=== PATIENT | male | born 1970 | race Caucasian/White ===

== ENCOUNTER 2025-02-08 00:44 | Inpatient (IN) | payer MEDICAID, OTHER ==
[~2025-02-08] VITALS: Ht 188 cm; Wt 81.6 kg
[2025-02-08] MEDS ORDERED: VANCOMYCIN IV 200 ML ONE (02:03)
[2025-02-08] MEDS: VANCOMYCIN IV 1,000 MG in IV DEXTROSE 5% 250 ML IV ONE (02:05)
[2025-02-08 02:16] LABS: PLATELET COUNT (AUTO) 247 K/uL (152-348); RED BLOOD CELL COUNT(AUTO) 4.27 MIL/uL (4.06-5.63); RED CELL DISTRIBUTION WIDTH 14.4 % (12.1-16.2); WHITE BLOOD COUNT (AUTO) 7.5 K/uL (3.6-10.2)
[2025-02-08 02:22] LABS: CREATININE 1.0 mg/dL (0.6-1.3); SODIUM SERUM 136.0 mmol/L (136-145); UREA NITROGEN, BLOOD 15.0 mg/dL (7-18)
[2025-02-08 02:28] LABS: ASPARTATE AMINOTRANSFERASE 11.0 U/L (15-37); TOTAL PROTEIN, SERUM 9.2 g/dL (6.4-8.2)
[2025-02-08 05:00] VITALS: BP 115/74
[2025-02-08] MEDS ORDERED: MAGNESIUM HYDROXIDE 30 ML LIQUID UDC PO PRN (05:00)
[2025-02-08] MEDS ORDERED: ONDANSETRON 4 MG/2 ML VIAL IV PRN (05:00)
[2025-02-08] MEDS ORDERED: ACETAMINOPHEN 325 MG TABLET PO PRN (05:00)
[2025-02-08] MEDS ORDERED: ENOXAPARIN SODIUM 40 MG/0.4 ML DISP.SYRIN SQ SCH (05:00)
[2025-02-08] MEDS ORDERED: ENOXAPARIN SODIUM 40 MG/0.4 ML DISP.SYRIN SQ ONE (05:45)
[2025-02-08 06:49] VITALS: BP 121/76; TEMP 97.9; O2SAT 99
[2025-02-08] MEDS: PANTOPRAZOLE SODIUM 40 MG TABLET.DR PO SCH (08:08)
[2025-02-08] MEDS: IV NS 1000 ML 1,000 ML IV PRN (08:11)
[2025-02-08] MEDS: VANCOMYCIN IV 1,000 MG in IV DEXTROSE 5% 250 ML IV SCH (09:15)
[2025-02-08 11:34] VITALS: BP 109/61; TEMP 97.8; O2SAT 98
[2025-02-08 12:23] LABS: *AMPHETAMINE, URINE POSITIVE (NEGATIVE); *BARBITURATE, URINE NEGATIVE (NEGATIVE); *BENZODIAZEPINE, URINE NEGATIVE (NEGATIVE); *CANNABINOID, URINE NEGATIVE (NEGATIVE); *COCCAINE, URINE POSITIVE (NEGATIVE); *OPIATE, URINE NEGATIVE (NEGATIVE); *PHENCYCLIDINE SCREEN,URINE NEGATIVE (NEGATIVE); FENTANYL, URINE POSITIVE (NEGATIVE)
[2025-02-08] MEDS: CEFEPIME HCL 2 GM in IV DEXTROSE 5% 100 ML IV SCH (13:57)
[2025-02-08 15:54] VITALS: BP 97/53; TEMP 97.4; O2SAT 98
[2025-02-08] MEDS: SODIUM HYPOCHLORITE 0.125% (QUARTER STRENGTH) 473 ML BOTTLE TP SCH (16:25)
[2025-02-08 19:28] VITALS: BP 104/53; TEMP 98.6; O2SAT 99
[2025-02-09 05:28] VITALS: BP 109/64; TEMP 97.5; O2SAT 96
[2025-02-09 06:47] LABS: PLATELET COUNT (AUTO) 214 K/uL (152-348); RED BLOOD CELL COUNT(AUTO) 4.03 MIL/uL (4.06-5.63); RED CELL DISTRIBUTION WIDTH 14.4 % (12.1-16.2); WHITE BLOOD COUNT (AUTO) 4.7 K/uL (3.6-10.2)
[2025-02-09 07:09] LABS: CREATININE 0.9 mg/dL (0.6-1.3); SODIUM SERUM 138.0 mmol/L (136-145); UREA NITROGEN, BLOOD 11.0 mg/dL (7-18)
[2025-02-09] MEDS: ENOXAPARIN SODIUM 40 MG/0.4 ML DISP.SYRIN SQ SCH (09:10)
[2025-02-09] MEDS ORDERED: CLIN300C12 PO (11:18)
[2025-02-09 11:35] VITALS: BP 103/52; TEMP 97.7; O2SAT 100
[2025-02-09] MEDS ORDERED: CEFEPIME HCL 2 GM in IV DEXTROSE 5% 100 ML IV SCH (14:00)
[2025-02-09 15:45] VITALS: BP 90/53; TEMP 97.8; O2SAT 99
[2025-02-09] MEDS: CEFEPIME HCL 2 GM in IV DEXTROSE 5% 100 ML IV SCH (17:07)
[2025-02-09 19:00] VITALS: BP 99/56; TEMP 97.7; O2SAT 96
[2025-02-10 04:00] VITALS: BP 111/65; TEMP 97.8; O2SAT 97
[2025-02-10 11:55] VITALS: BP 120/70; TEMP 97.8; O2SAT 99
== END 2025-02-10 12:50 | disposition home or self-care (01) | DRG 383 ==
LOC: ER 01:00 → MEDSURG3 05:21
PROVIDERS: ATTEND Internal Medicine
DX: L03.115 Cellulitis of right lower limb (principal); E88.09 Other disorders of plasma-protein metabolism, not elsewhere classified; L03.116 Cellulitis of left lower limb; F15.10 Other stimulant abuse, uncomplicated; D64.9 Anemia, unspecified; Z59.02 Unsheltered homelessness; S80.862A Insect bite (nonvenomous), left lower leg, initial encounter; S80.861A Insect bite (nonvenomous), right lower leg, initial encounter; W57.XXXA Bitten or stung by nonvenomous insect and other nonvenomous arthropods, initial encounter; Y92.89 Other specified places as the place of occurrence of the external cause; I89.0 Lymphedema, not elsewhere classified; F17.210 Nicotine dependence, cigarettes, uncomplicated; F19.10 Other psychoactive substance abuse, uncomplicated; I87.2 Venous insufficiency (chronic) (peripheral)
CPT/HCPCS: 36415; 83735; 84100; 85025; 87040; A4606; A4663; G0378; J0692; J1650; J3373; J7040; J7050